=== PATIENT | female | born 1985 | race Two or more races ===

== ENCOUNTER 2020-12-05 10:34 | Emergency (ER) | payer OTHER ==
[~2020-12-05] VITALS: Ht 167.6 cm; Wt 56.7 kg
[~2020-12-05 10:34] MED LIST: ANTICONCEPTIVAS; DICLOFENAC SODI50 MG PO
[2020-12-05] MEDS ORDERED: AMOX-CLAV 875-1 EACH PO (14:13)
[2020-12-05] MEDS ORDERED: TUSSI PRES-B L480 ML PO (14:13)
[2020-12-05] MEDS ORDERED: MEDROLPACK PO (14:13)
[2020-12-05] MEDS ORDERED: TESSALON PERLE100 M1 PO (14:13)
== END 2020-12-05 14:21 | disposition home or self-care (01) ==
LOC: ER 10:34
DX: J06.9 Acute upper respiratory infection, unspecified (principal); Z03.818 Encounter for observation for suspected exposure to other biological agents ruled out; R09.81 Nasal congestion; R07.9 Chest pain, unspecified; R05 Cough

== ENCOUNTER 2021-05-15 08:03 | Outpatient (CLI) | payer OTHER ==
[~2021-05-15 08:03] MED LIST changes: +AMOX-CLAV 875-1 EACH PO; +MEDROLPACK PO; +TESSALON PERLE100 M1 PO; +TUSSI PRES-B L480 ML PO
== END 2021-05-15 09:00 | disposition home or self-care (01) ==
LOC: PRENATAL 08:03
PROVIDERS: ATTEND Obstetrics & Gynecology Maternal & Fetal Medicine
DX: O36.80X0 Pregnancy with inconclusive fetal viability, not applicable or unspecified (principal); O30.91 Multiple gestation, unspecified, first trimester; O34.41 Maternal care for other abnormalities of cervix, first trimester; O09.511 Supervision of elderly primigravida, first trimester

== ENCOUNTER 2021-07-09 07:54 | Outpatient (CLI) | payer OTHER | END 2021-07-09 09:45 | disposition home or self-care (01) | LOC: PRENATAL 07:54 | PROVIDERS: ATTEND Obstetrics & Gynecology Maternal & Fetal Medicine | DX: O35.0XX0 Maternal care for (suspected) central nervous system malformation in fetus, not applicable or unspecified (principal); O35.3XX0 Maternal care for (suspected) damage to fetus from viral disease in mother, not applicable or unspecified; O30.90 Multiple gestation, unspecified, unspecified trimester; O09.519 Supervision of elderly primigravida, unspecified trimester; O34.40 Maternal care for other abnormalities of cervix, unspecified trimester; Z3A.20 20 weeks gestation of pregnancy ==

== ENCOUNTER 2021-08-27 07:52 | Outpatient (CLI) | payer OTHER | END 2021-08-27 09:15 | disposition home or self-care (01) | LOC: PRENATAL 07:52 | PROVIDERS: ATTEND Obstetrics & Gynecology Maternal & Fetal Medicine | DX: O26.849 Uterine size-date discrepancy, unspecified trimester (principal); O30.90 Multiple gestation, unspecified, unspecified trimester; Z3A.27 27 weeks gestation of pregnancy; O09.519 Supervision of elderly primigravida, unspecified trimester ==

== ENCOUNTER 2021-09-13 16:26 | Emergency (ER) | payer OTHER ==
[~2021-09-13] VITALS: Ht 167.6 cm; Wt 72.1 kg
== END 2021-09-13 20:01 | disposition home or self-care (01) ==
LOC: ER 16:26
DX: O26.893 Other specified pregnancy related conditions, third trimester (principal); Z3A.29 29 weeks gestation of pregnancy; R51.9 Headache, unspecified

== ENCOUNTER 2021-10-01 07:39 | Outpatient (CLI) | payer OTHER | END 2021-10-01 14:22 | disposition home or self-care (01) | LOC: PRENATAL 07:39 | PROVIDERS: ATTEND Obstetrics & Gynecology Maternal & Fetal Medicine | DX: O26.849 Uterine size-date discrepancy, unspecified trimester (principal); O30.90 Multiple gestation, unspecified, unspecified trimester; O09.519 Supervision of elderly primigravida, unspecified trimester; Z3A.32 32 weeks gestation of pregnancy; Z91.013 Allergy to seafood ==

== ENCOUNTER 2021-10-05 11:58 | Inpatient (IN) | payer OTHER ==
[~2021-10-05] VITALS: Ht 167.6 cm; Wt 2.3 kg
[2021-10-08] MEDS ORDERED: IBUPROFEN800 MG PO (07:04)
== END 2021-10-08 15:34 | disposition home or self-care (01) | DRG 788 ==
LOC: LDR 11:58 → OB/GYN 11:58
PROVIDERS: Obstetrics & Gynecology; ADMIT Specialist; ATTEND Specialist
PROC: 4A1HXCZ Monitoring of Products of Conception, Cardiac Rate, External Approach (ICD-10-PCS; 2021-10-05)
PROC: 10D00Z1 Extraction of Products of Conception, Low, Open Approach (ICD-10-PCS; principal; 2021-10-05 12:00)
DX: O60.14X2 Preterm labor third trimester with preterm delivery third trimester, fetus 2 (principal); O30.093 Twin pregnancy, unable to determine number of placenta and number of amniotic sacs, third trimester; Z3A.32 32 weeks gestation of pregnancy; Z37.2 Twins, both liveborn; Z20.822 Contact with and (suspected) exposure to COVID-19

== ENCOUNTER 2022-08-18 11:17 | Emergency (ER) | payer OTHER ==
[~2022-08-18] VITALS: Ht 167.6 cm; Wt 58.1 kg
[~2022-08-18 11:17] MED LIST changes: +IBUPROFEN800 MG PO
[2022-08-18] MEDS ORDERED: ERRIN0.35 MG PO (11:28)
[2022-08-18] MEDS ORDERED: IBU800 MG PO (16:28)
== END 2022-08-18 16:40 | disposition home or self-care (01) ==
LOC: ER 11:17
DX: S92.911A Unspecified fracture of right toe(s), initial encounter for closed fracture (principal); X58.XXXA Exposure to other specified factors, initial encounter; Y93.89 Activity, other specified; Y92.019 Unspecified place in single-family (private) house as the place of occurrence of the external cause; Z91.013 Allergy to seafood; Z91.018 Allergy to other foods

== ENCOUNTER 2022-09-15 08:44 | Outpatient (CLI) | payer OTHER ==
[~2022-09-15 08:44] MED LIST changes: +ERRIN0.35 MG PO; +IBU800 MG PO
== END 2022-09-15 08:53 | disposition home or self-care (01) ==
LOC: RAD 08:44
PROVIDERS: ATTEND Orthopaedic Surgery
DX: S92.514A Nondisplaced fracture of proximal phalanx of right lesser toe(s), initial encounter for closed fracture (principal)

== ENCOUNTER 2024-12-16 08:04 | Emergency (ER) | payer OTHER ==
[~2024-12-16] VITALS: Ht 167.6 cm; Wt 63.5 kg
[2024-12-16] MEDS ORDERED: SPRINTEC 28 DA1 EAC1 PO (08:26)
[2024-12-16 09:45] LABS: BASO % 0.4 % (0.1-1.2); EOS # 0.08 (0.04-0.54); EOS % 1.7 % (0.7-7.0); LYMPH # 1.20 (1.18-3.74); LYMPH % 24.9 % (19.3-53.1); MEAN PLATELET VOLUME 11.40 fl (9.4-12.4); MONO # 0.32 (0.24-0.82); MONO % 6.7 % (4.7-12.5); NEUT # 3.18 (1.56-6.13); NEUT % 66.1 % (34.0-71.1); RED CELL DISTRIBUTION WIDTH 11.9 % (11.6-14.4)
[2024-12-16 10:12] LABS: URINE BACTERIA 590.3 uL (0.0-1933); URINE EPITHELIAL CELLS 13.8 uL (0.0-38.8); URINE RBC 20.5 uL (0.0-20.8); URINE WBC 6.3 uL (0.0-23.2)
[2024-12-16 10:18] LABS: URINE APPEARANCE Clear; URINE BILIRRUBIN Negative (NEGATIVE); URINE BLOOD Small; URINE COLOR Dark Yellow; URINE GLUCOSE Negative (NEGATIVE); URINE LEUKOCYTE Negative; URINE NITRATE Negative; URINE PROTEIN Negative (NEGATIVE); URINE UROBILINOGEN 0.2 E.U./dl
[2024-12-16 10:19] LABS: ALT/SGPT 14.0 U/L (12-78); AST/SGOT 11.0 U/L (15-37); BILIRUBIN TOTAL 1.02 mg/dL (0.3-1.2); BUN CREA RATIO 20.0 (7.0-25.0); CREATININE SERUM 0.81 mg/dL (0.55-1.02); GFR 78.72; GLOBULINA 3.8 G/DL (2.4-3.5); GLUCOSE FASTING 75.0 mg/dL (65-100); OSMOLALITY SERUM 276.0 MOSM/KG (275-295)
[2024-12-16 10:20] LABS: URINE CAST 0.43 uL (0.0-1.40); URINE KETONE 40 (NEGATIVE)
[2024-12-16] MEDS ORDERED: BARIUM SULFATE 450 ML ORAL.SUSP PO ONE (10:53)
[2024-12-16] MEDS ORDERED: ONDANSETRON HCL 2 MG/ML VIAL ONE (10:54)
[2024-12-16] MEDS ORDERED: METHYLPREDNISOLONE SOD SUCC 125 MG VIAL ONE (13:51)
[2024-12-16] MEDS ORDERED: DIPHENHYDRAMINE HCL 50 MG/ML VIAL 1ML ONE (13:51)
[2024-12-16] MEDS ORDERED: DIPHENHYDRAMINE HCL 50 MG/ML VIAL 1ML IV ONE (14:00)
[2024-12-16] MEDS ORDERED: METHYLPREDNISOLONE SOD SUCC 125 MG VIAL IV ONE (14:00)
== END 2024-12-16 16:57 | disposition home or self-care (01) ==
LOC: ER 08:04
PROVIDERS: Emergency Medicine
DX: R10.9 Unspecified abdominal pain (principal); Z91.013 Allergy to seafood; Z91.018 Allergy to other foods